=== PATIENT | male | born 1955 | race Caucasian/White ===

== ENCOUNTER 2016-12-14 21:37 | Emergency (ER) | payer OTHER ==
[~2016-12-14 21:37] MED LIST: FENOFIBRATE67 MG PO; HYDROCODONE/APA1 T16 PO; MUCINEX FAST-M1 EAC1 PO; PRILOSEC PO; SPIRIVA18 MCG INH
== END 2016-12-14 22:47 | disposition home or self-care (01) ==
LOC: SED 21:37
DX: M25.511 Pain in right shoulder (principal); G89.29 Other chronic pain; F17.210 Nicotine dependence, cigarettes, uncomplicated; Z88.8 Allergy status to other drugs, medicaments and biological substances
CPT/HCPCS: 96372; 99283; J1885; J2360

== ENCOUNTER 2016-12-15 23:50 | Emergency (ER) | payer OTHER ==
--- NOTE | ~2016-12-15 | CR230 ---
[facility] A Service of [facility] & [facility] RADIOLOGY TEXT RESULTS PATIENT: BENNY ADAMS LOCATION: SED : 59 UNIT #: [id number] AGE: [address]: Roque Rosenbaum MD SEX: M ORDER DR: [id number] [place] [id number] E MR#: [id number] #: [id number] NAME: BENNY ADAMS : 1955 SEX: M STUDY DATE/TIME: 12/15/2016 23:58 UNIT: SED ROOM: STUDY DESCRIPTION: CR Shoulder Min 2 View Rt Attending Physician: Roque Rosenbaum M.D. Ordering Physician: Roque Rosenbaum M.D. Primary Care Physician: Ramirez Finch Jr., A.P.R.N. MEDICAL IMAGING REPORT This report is preliminary unless electronic signature is present. EXAM Right shoulder 3 views. HISTORY Right shoulder pain. Injured shoulder changing tire 2 days ago. History of rotator cuff repair. FINDINGS 3 views of the right shoulder demonstrates no fracture or dislocation. Suture anchors are noted from previous rotator cuff repair. AC joint unremarkable. The soft tissues and visualized right thorax appear normal. IMPRESSION Postsurgical changes right shoulder. No acute findings. Dictated by... Freda Sahni M.D. THIS IS AN ELECTRONICALLY VERIFIED REPORT Freda Sahni M.D. at 12/16/2016 10:05 PM Jamie TD: 12/16/2016 11:08 JOB #: [id number] MEDICAL IMAGING REPORT Page 1 of 1
== END 2016-12-16 00:28 | disposition home or self-care (01) ==
LOC: SED 23:50
DX: M25.511 Pain in right shoulder (principal); Z76.5 Malingerer [conscious simulation]; F17.200 Nicotine dependence, unspecified, uncomplicated; Z88.5 Allergy status to narcotic agent; Z79.899 Other long term (current) drug therapy
CPT/HCPCS: 73030; 99283